=== PATIENT | male | born 1995 | race Caucasian/White ===

== ENCOUNTER 2018-10-29 16:24 | Emergency (ER) | payer OTHER ==
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
[2018-10-29 16:47] VITALS: BP 131/74
[2018-10-29] MEDS: IBUPROFEN 200 MG TABLET PO ONE (16:50)
== END 2018-10-29 16:56 | disposition home or self-care (01) ==
LOC: ED 16:24
DX: S63.92XA Sprain of unspecified part of left wrist and hand, initial encounter (principal); X58.XXXA Exposure to other specified factors, initial encounter
CPT/HCPCS: 99281; 99283